=== PATIENT | female | born 1975 | race Caucasian/White ===

== ENCOUNTER 2022-02-04 08:47 | Emergency (ER) | payer OTHER ==
[~2022-02-04] VITALS: Ht 160 cm; Wt 73.0 kg
[2022-02-04 08:51] VITALS: BP 128/72
[2022-02-04] MEDS ORDERED: ACETAMINOPHEN 325MG TABLET PO ONE (09:00)
[2022-02-04] MEDS ORDERED: METH-653 MT (10:07)
[2022-02-04] MEDS ORDERED: METHOCARBAMOL 500MG TABLET PO ONE (10:15)
[2022-02-04] MEDS ORDERED: METHOCARBAMOL 750MG TABLET PO SCH (14:00)
== END 2022-02-04 11:05 | disposition home or self-care (01) ==
LOC: ER 08:47
DX: S20.212A Contusion of left front wall of thorax, initial encounter (principal); S16.1XXA Strain of muscle, fascia and tendon at neck level, initial encounter; V43.62XA Car passenger injured in collision with other type car in traffic accident, initial encounter; Y93.89 Activity, other specified; Y92.488 Other paved roadways as the place of occurrence of the external cause
CPT/HCPCS: 71045; 99283